=== PATIENT | female | born 1965 | race Caucasian/White ===

== ENCOUNTER 2018-08-25 21:57 | Inpatient (IN) | payer OTHER ==
[~2018-08-25] VITALS: Ht 170.2 cm; Wt 152.5 kg
[2018-08-25 23:20] VITALS: BP 127/83
[2018-08-26] MEDS ORDERED: ATORVASTATIN CA40 MG PO (01:14)
[2018-08-26] MEDS ORDERED: CELEBREX 200 M200 M1 PO (01:15)
[2018-08-26] MEDS ORDERED: CATAPRES0.2 M1 PO (01:20)
[2018-08-26] MEDS ORDERED: NEURONTIN 300300 M1 PO (01:21)
[2018-08-26] MEDS ORDERED: PLAVIX 75 MG TA75 M1 PO (01:21)
[2018-08-26] MEDS ORDERED: GLIPIZIDE 10 MG10 MG PO (01:22)
[2018-08-26] MEDS ORDERED: HYDROCHLOROTHIA25 M2 PO (01:23)
[2018-08-26] MEDS ORDERED: NORCO 10-325 T1 EACH PO (01:25)
[2018-08-26] MEDS ORDERED: LOPRESSOR50 PO (01:26)
[2018-08-26] MEDS ORDERED: MUPIROCIN22 GM TOP (01:28)
[2018-08-26] MEDS ORDERED: NIFEDIPINE ER30 MG PO (01:30)
[2018-08-26] MEDS ORDERED: NOVOLIN N100 UNIT/3 SUBQ (01:31)
[2018-08-26] MEDS ORDERED: OMEPRAZOLE40 MG PO (01:32)
[2018-08-26] MEDS ORDERED: BENICAR20 MG PO (01:32)
[2018-08-26] MEDS ORDERED: OXYBUTYNIN 5 MG5 M2 PO (01:34)
[2018-08-26] MEDS ORDERED: RESTORIL15 MG PO (01:35)
[2018-08-26] MEDS ORDERED: MIRALAX17 GM PO (01:35)
[2018-08-26] MEDS ORDERED: VENTOLIN HFA 1818 GM INH ×2 (01:37→01:38)
--- NOTE | 2018-08-26 03:06 | NUR ---
PT ARRIVED UNIT FROM [facility] AT ABOUT 2230. PT A/OX4, VITAL SIGNS STABLE BLOOD GLUCOSE OF 262, PT ON INSULIN DRIP RUNNING AT 5UNITS/HR. NO COMPLAINTS OF CHEST PAIN. PT MENTION SOME CHRONIC INTERMITENT BUTTOCK PAIN. PAIN RELIEVED BY REPOSITIONING. PT HAD A 1CM NITRO PASTE ON RIGHT CHEST. ADMISSION HISTORY COMPLETE, ASSESSMENT DONE. PT INCONTINENT BUT WAS ABLE TO PIVOT TO BEDSIDE COMMODE. FOLLOWING INSULIN DRIP PROTOCOL. Q1HR BLOOD SUGARS. PT IN ROOM RESTING. PT CLOSE TO NURSING STATION FOR CLOSE MONITORING. WILL CONTINUE TO CLOSELY MONITOR.
[2018-08-26 03:30] LABS: CREATININE 1.3 mg/dL (0.6-1.0)
[2018-08-26 03:32] LABS: POTASSIUM 5.7 mmol/L (3.5-5.1)
[2018-08-26 04:15] VITALS: BP 91/58
[2018-08-26 04:42] LABS: HEMATOCRIT 41.4 % (37.0-47.0); HEMOGLOBIN 13.4 gm/dL (12.0-15.0); MCH 31.6 pg (26.0-34.0); MCHC 32.4 g/dL (28.0-37.0); MCV 97.8 fL (80.0-100.0); RBC 4.23 mil/uL (4.20-5.00); RDW 16.7 % (10.5-14.5); WBC 10.1 thou/uL (4.0-11.0)
[2018-08-26 07:01] LABS: CHOLESTEROL 122 mg/dL (<200); HDL CHOLESTEROL 36 mg/dL (>40); LDL CHOLESTEROL 49 mg/dL (<100); TC:HDL 3.4 Ratio (Not establshd); TRIGLYCERIDE 187 mg/dL (<150); VLDL 37 mg/dL (<40)
[2018-08-26 07:35] VITALS: BP 100/63
--- NOTE | 2018-08-26 08:03 | EKG ---
[place] [address] [facility] [place] [address] ELECTROCARDIOGRAM REPORT Name: LONDON MONET Room #: 205-P ADM IN M.R.#: [id number] ������������������ Admission: 08/25/18 ������������������ Attend Phys: Andry Lares MD Discharge: ������������������ Date of : 65 Report #: [id number] ����������������������������������������������������������������� [id number] THIS REPORT FOR: //name// [facility] Test Date: 2018-08-26 Test Time: 07:11:01 Pat Name: LONDON MONET Department: Room: 205 P Gender: F Net Fisher: RUDDY : 1965 Requested By: Hallie Harden Order Number: [id number] MD: Mike Barakat Measurements Intervals [place] Rate: 76 P: 94 [place]: 204 QRS: 54 QRSD: 98 T: -35 QT: 396 QTc: 446 Interpretive Statements Sinus rhythm Poor R wave progression Nonspecific T wave abnormality No previous ECG available for comparison Electronically Signed On 08-26-2018 8:03:10 CDT by Mike Barakat [email or web address] ��������������������������������������������� <ELECTRONICALLY SIGNED> ���������������������������������������� By: Mike Barakat MD, [facility] ��������������������������������������������� 08/26/18 0803 07 0 Mike Barakat MD, FACC /EPI
--- NOTE | 2018-08-26 10:45 | 2DMMODE ---
[facility] [address] [place] [address] 2 D/M-MODE ECHOCARDIOGRAM Name: LONDON MONET Room #: 205-P ADM IN M.R.#: [id number] ������������� Admission: 08/25/18 ������������� Attend Phys: Andry Lares MD Discharge: ��� ������������� ��� Date of : 65 Date of Service: 08/26/18 1044 �� Report #: [id number] �������� ��������������������������������������������[id number] THIS REPORT FOR: //name// APPROVED REPORT Study performed: 08/26/2018 09:09:56 EXAM: Comprehensive 2D, Doppler, and color-flow Echocardiogram Patient Location: Bedside Room #: 205 Status: routine BSA: 2.52 HR: 78 bpm BP: 91/58 mmHg Rhythm: NSR Other Information Study Quality: Fair Technically limited study due to body habitus, inability to position patient. Indications Diabetes Dyspnea Elevated Troponin Hypertension/HDD Morbid obesity 2D Dimensions IVSd: 14.94 (7-11mm) LVOT Diam: 19.05 (18-24mm) LVDd: 33.36 mm PWd: 14.35 (7-11mm) Ascending Ao: 33.45 (22-36mm) LVDs: 23.02 (25-40mm) Aortic Root: 28.85 mm Aortic Valve AoV Peak Leandro.: 1.55 m/s AO Peak Gr.: 9.63 mmHg LVOT Max P.81 mmHg LVOT Max V: 0.98 m/s LANCE Vmax: 1.79 cm2 Mitral Valve E/A Ratio: 0.6 MV Decel. Time: 417.37 ms MV E Max Leandro.: 0.67 m/s [facility] [address] [place] [address] 2 D/M-MODE ECHOCARDIOGRAM Name: LONDON MONET Room #: 205-P [facility] IN .R.#: [id number] ������������� Admission: 08/25/18 ������������� Attend Phys: Andry Lares MD Discharge: ��� ������������� ��� Date of : 65 Date of Service: 08/26/18 1044 �� Report #: [id number] �������� ��������������������������������������������[id number] MV A Leandro.: 1.11 m/s MV PHT: 121.04 ms IVRT: 119.95 ms Pulmonary Valve PV Peak Leandro.: 1.02 m/s PV Peak Gr.: 4.20 mmHg Pulmonary Vein P Vein S: 0.43 m/s P Vein A: 0.27 m/s P Vein D: 0.31 m/s P Vein A Dur.: 129.2 msec P Vein S/D Ratio: 1.39 Tricuspid Valve TR Peak Leandro.: 3.90 m/s TR Peak Gr.: 60.87 mmHg PA Pressure: 76.00 mmHg Left Ventricle The left ventricle is normal size. There is normal LV segmental wall motion. Mild to moderate concentric left ventricular hypertrophy. The left ventricular systolic function is normal. The left ventricular ejection fraction is within the normal range. LVEF is 60-65%. Grade I - abnormal relaxation pattern. Right Ventricle Right ventricle is dilated. Right ventricle is hypokinetic. Atria Left atrium is borderline dilated. Right atrium is dilated. Aortic Valve The aortic valve is normal in structure. No aortic regurgitation is present. There is no aortic valvular stenosis. Mitral Valve The mitral valve is normal in structure. There is no mitral valve regurgitation noted. No evidence of mitral valve stenosis. Tricuspid Valve The tricuspid valve is normal in structure. There is moderate tricuspid regurgitation. Estimated PAP 76 mmHg. There is severe pulmonary hypertension. Pulmonic Valve The pulmonary valve is normal in structure. Trace pulmonic [facility] [address] [place] [address] 2 D/M-MODE ECHOCARDIOGRAM Name: [facility] Room #: 205-P [facility] IN M.R.#: [id number] ������������� Admission: 08/25/18 ������������� Attend Phys: Andry Lares MD Discharge: ��� ������������� ��� Date of : 65 Date of Service: 08/26/18 1044 �� Report #: [id number] �������� ��������������������������������������������[id number] regurgitation. Great Vessels The aortic root is normal in size. The inferior vena cava is dilated with no inspiratory collapse. Pericardium There is no pericardial effusion. <Conclusion> The left ventricle is normal size. LVEF is 60-65%. Right ventricle is dilated. Right ventricle is hypokinetic. Left atrium is borderline dilated. Right atrium is dilated. The aortic valve is normal in structure. The mitral valve is normal in structure. The tricuspid valve is normal in structure. There is moderate tricuspid regurgitation. Estimated PAP 76 mmHg. There is severe pulmonary hypertension. The pulmonary valve is normal in structure. Trace pulmonic regurgitation. There is no pericardial effusion. ��������������������������������������������� <ELECTRONICALLY SIGNED> ���������������������������������������� By: Kurtis Cedeno MD ��������������������������������������������� 08/26/18 1044 1044 1044 Kurtis Cedeno MD /INF
--- NOTE | 2018-08-26 14:26 | NUR ---
ASSUMED CARE OF PATIENT AT 0700. PATIENT HAS FAMILY AT BEDSIDE. PATIENT IS ON INSULIN DRIP WITH BLOOD SUGARS BEING CHECKED Q 1 HOUR. PATIENT COMPLAINS OF PAIN AT BUTTOCKS AND UNDER GOING Q 2 TURNS. PATIENT HAS HISTORY OF STOKE X 2 AND HAS SLURRED SPEECH AND SLOW THOUGHT PROCESS. PATIENT HAS EQUAL BILATERAL STRENGTH. PATIENT ATE WELL AT BREAKFAST. DR. PAPPAS D/C PATIENT INSULIN DRIP DUE TO BLOOD SUGARS SUSTAINED IN THE 100'S. PATIENT SWITCHED TO [facility] AC[facility]. PATIENT RESTING COMFORTABLY IN BED WITH CALL LIGHT WITHIN REACH.
== END 2018-08-26 17:53 ==
LOC: 2N 21:57
PROVIDERS: Nurse Practitioner Family; ADMIT Hospitalist
DX: I21.4 Non-ST elevation (NSTEMI) myocardial infarction (principal); I74.9 Embolism and thrombosis of unspecified artery; I67.5 Moyamoya disease; Z68.43 Body mass index [BMI] 50.0-59.9, adult; I24.9 Acute ischemic heart disease, unspecified; I10 Essential (primary) hypertension; M19.90 Unspecified osteoarthritis, unspecified site; E66.01 Morbid (severe) obesity due to excess calories; F17.210 Nicotine dependence, cigarettes, uncomplicated; E78.5 Hyperlipidemia, unspecified; I27.20 Pulmonary hypertension, unspecified; E11.65 Type 2 diabetes mellitus with hyperglycemia; K21.9 Gastro-esophageal reflux disease without esophagitis; E87.5 Hyperkalemia; Z79.899 Other long term (current) drug therapy; Z86.73 Personal history of transient ischemic attack (TIA), and cerebral infarction without residual deficits; Z88.8 Allergy status to other drugs, medicaments and biological substances; Z83.3 Family history of diabetes mellitus; Z82.5 Family history of asthma and other chronic lower respiratory diseases; Z83.49 Family history of other endocrine, nutritional and metabolic diseases; Z79.82 Long term (current) use of aspirin
CPT/HCPCS: 10081